=== PATIENT | female | born 1960 | race African-American/Black ===

== ENCOUNTER 2017-01-05 01:48 | Emergency (ER) | payer BC, MEDICAID ==
[~2017-01-05] VITALS: Ht 167.6 cm; Wt 87.0 kg
[~2017-01-05 01:48] MED LIST: ALBUTEROL; BENADRYL
[2017-01-05] MEDS ORDERED: TETANUS, DIPHTHERIA, PERTUSSIS VAC/PF 0.5ML (>7YR OLD) IM ONE (06:15)
[2017-01-05] MEDS ORDERED: IBUPROFEN 600MG TABLET PO ONE (06:15)
[2017-01-05 06:23] VITALS: BP 104/64
== END 2017-01-05 06:22 | disposition home or self-care (01) ==
LOC: ER 01:48
DX: S61.411A Laceration without foreign body of right hand, initial encounter (principal); I10 Essential (primary) hypertension; J45.909 Unspecified asthma, uncomplicated; Z88.0 Allergy status to penicillin; X50.0XXA Overexertion from strenuous movement or load, initial encounter; X50.9XXA Other and unspecified overexertion or strenuous movements or postures, initial encounter; Y93.89 Activity, other specified; Y92.89 Other specified places as the place of occurrence of the external cause; Y99.8 Other external cause status
CPT/HCPCS: 90471; 90715; 99283

== ENCOUNTER 2019-05-17 13:01 | Emergency (ER) | payer BC, MEDICAID ==
[~2019-05-17] VITALS: Ht 167.6 cm; Wt 103.0 kg
[2019-05-17] MEDS ORDERED: KETOROLAC 30MG/ML VIAL IV STA (14:32)
[2019-05-17] MEDS ORDERED: ONDANSETRON HCL 4MG/2ML INJ IV STA (14:32)
[2019-05-17] MEDS ORDERED: SODIUM CHLORIDE 0.9% 1,000 ML IV ONE (14:32)
[2019-05-17 15:01] LABS: BASOPHILS % 0.8 % (0.0-2.0); EOSINOPHILS % 1.2 % (0.0-5.0); HEMATOCRIT. 38.8 % (36.0-48.0); HEMOGLOBIN. 13.3 g/dL (12.0-16.0); LYMPHOCYTES % 13.3 % (20.0-50.0); MEAN CORPUSCULAR HEMOGLOBIN 32.8 pg (28.0-32.0); MEAN CORPUSCULAR VOLUME 95.7 fL (81.0-99.0); MEAN PLATELET VOLUME 8.1 fl (7.4-10.4); MONOCYTES % 6.9 % (2.0-8.0); NEUTROPHILS % 77.8 % (40.0-76.0); PLATELET 271 x1000/uL (130-400); RED BLOOD CELL COUNT 4.05 mill/uL (4.2-5.4); RED CELL DISTRIBUTION WIDTH 12.9 % (11.6-14.6)
[2019-05-17 15:06] LABS: CHLORIDE 103 mEq/L (98-107)
[2019-05-17 16:45] LABS: CLARITY URINE CLEAR (CLEAR); COLOR URINE YELLOW (YELLOW); KETONES URINE NEGATIVE (NEGATIVE); LEUKOCYTE ESTERASE URINE TRACE (NEGATIVE); NITRITE URINE NEGATIVE (NEGATIVE); OCCULT BLOOD URINE NEGATIVE (NEGATIVE); PROTEIN URINE NEGATIVE (NEGATIVE)
[2019-05-17] MEDS ORDERED: ACETAMINOPHEN WITH CODEINE 300/30MG TABLET PO ONE (17:15)
[2019-05-17 17:33] VITALS: BP 172/97
== END 2019-05-17 18:00 | disposition home or self-care (01) ==
LOC: ER 13:12
DX: S00.83XA Contusion of other part of head, initial encounter (principal); R55 Syncope and collapse; R42 Dizziness and giddiness; R11.2 Nausea with vomiting, unspecified; R51 Headache; J45.909 Unspecified asthma, uncomplicated; I10 Essential (primary) hypertension; D64.9 Anemia, unspecified; Z98.890 Other specified postprocedural states; Z88.0 Allergy status to penicillin; X58.XXXA Exposure to other specified factors, initial encounter; Y93.89 Activity, other specified; Y92.89 Other specified places as the place of occurrence of the external cause; Y99.8 Other external cause status
CPT/HCPCS: 36415; 70450; 71045; 80053; 81003; 85025; 93005; 96361; 96374; 96375; 99284; J1885; J2405; J7030

== ENCOUNTER 2020-05-05 18:02 | Emergency (ER) | payer MEDICAID ==
[~2020-05-05] VITALS: Ht 167.6 cm; Wt 86.0 kg
[2020-05-05] MEDS ORDERED: HYDROCODONE/ACETAMINOPHEN 5/325MG TABLET PO ONE (18:30)
[2020-05-05 19:37] VITALS: BP 150/72
== END 2020-05-05 19:39 | disposition home or self-care (01) ==
LOC: ER 18:02
DX: M62.830 Muscle spasm of back (principal); J45.909 Unspecified asthma, uncomplicated; D64.9 Anemia, unspecified; I10 Essential (primary) hypertension; Z98.890 Other specified postprocedural states; Z76.0 Encounter for issue of repeat prescription; Z88.0 Allergy status to penicillin; V98.8XXA Other specified transport accidents, initial encounter; Y93.89 Activity, other specified; Y92.89 Other specified places as the place of occurrence of the external cause; Y99.8 Other external cause status
CPT/HCPCS: 99283

== ENCOUNTER 2020-07-28 13:24 | Emergency (ER) | payer MEDICAID ==
[~2020-07-28] VITALS: Ht 167.6 cm; Wt 86.0 kg
[2020-07-28] MEDS ORDERED: KETOROLAC 30MG/ML VIAL IM ONE (13:45)
[2020-07-28] MEDS ORDERED: HYDR12.54 MT (13:50)
[2020-07-28] MEDS ORDERED: CYCL10TA7 MT (13:50)
[2020-07-28] MEDS ORDERED: NAPR-420 MT (13:50)
[2020-07-28 14:04] VITALS: BP 140/78
== END 2020-07-28 14:05 | disposition home or self-care (01) ==
LOC: ER 13:24
DX: M62.830 Muscle spasm of back (principal); J45.909 Unspecified asthma, uncomplicated; I10 Essential (primary) hypertension; Z76.0 Encounter for issue of repeat prescription; Z88.0 Allergy status to penicillin; Z79.899 Other long term (current) drug therapy
CPT/HCPCS: 96372; 99283; J1885

== ENCOUNTER 2024-09-25 15:31 | Emergency (ER) | payer MEDICAID, OTHER ==
[~2024-09-25] VITALS: Ht 167.6 cm; Wt 78.0 kg
[~2024-09-25 15:31] MED LIST changes: +ALBU18HF2 IH; +CARB-274 EACH EAR; +CYCL10TA21 MT; +HYDR12.54 MT; +NAPR-1176 MT; +NAPR-420 MT
[2024-09-25 15:41] VITALS: TEMP 36.6; O2SAT 98
[2024-09-25] MEDS ORDERED: KETO10TA2 MT ×2 (16:18→16:20)
[2024-09-25 16:41] VITALS: BP 129/77; PULSE 75; RESP 16; O2SAT 100
== END 2024-09-25 16:40 | disposition home or self-care (01) ==
LOC: ER 15:31
DX: M25.531 Pain in right wrist (principal); I10 Essential (primary) hypertension; J45.909 Unspecified asthma, uncomplicated; Z79.1 Long term (current) use of non-steroidal anti-inflammatories (NSAID); Z79.899 Other long term (current) drug therapy; Z88.0 Allergy status to penicillin
CPT/HCPCS: 73110; 99283